=== PATIENT | male | born 1945 | race African-American/Black ===

== ENCOUNTER 2024-11-12 20:23 | Emergency (ER) | payer OTHER ==
[~2024-11-12] VITALS: Ht 188 cm; Wt 87.0 kg
[2024-11-12 20:27] VITALS: TEMP 98.2; O2SAT 96
[2024-11-12] MEDS: SODIUM CHLORIDE 0.9% 1,000 ML IV ONE (21:24)
[2024-11-12 22:27] LABS: DIFFERENTIAL COMMENT 1; HEMATOCRIT. 44.3 % (42.0-52.0); HEMOGLOBIN. 14.1 g/dL (14.0-18.0); MEAN CORPUSCULAR HEMOGLOBIN 28.2 pg (28.0-32.0); MEAN CORPUSCULAR HGB CONC 31.8 g/dL (31.0-37.0); MEAN CORPUSCULAR VOLUME 88.6 fL (80.0-94.0); MEAN PLATELET VOLUME 10.6 fl (7.4-10.4); PLATELET 152 x1000/uL (130-400); RED CELL DISTRIBUTION WIDTH 14.7 % (11.6-14.6); WHITE BLOOD COUNT 9.9 x1000/uL (4.5-11.0)
[2024-11-12 22:33] LABS: INR 1.2; PARTIAL THROMBOPLASTIN TIME 35.3 sec (23.4-31.0); PROTHROMBIN TIME 12.7 sec (9.6-11.0)
[2024-11-12 22:49] LABS: CHLORIDE 104 mEq/L (98-107); POTASSIUM 4.1 mEq/L (3.5-5.1); SODIUM 138 mEq/L (136-145)
[2024-11-12 22:50] LABS: CARBON DIOXIDE 26 mEq/L (21-32)
[2024-11-12 22:51] LABS: CALCIUM 9.3 mg/dL (8.7-10.4)
[2024-11-12 22:55] LABS: CREATININE 0.8 mg/dL (0.6-1.3); GLUCOSE 116 mg/dL (70-105); UREA NITROGEN BLOOD 17 mg/dL (9-23)
[2024-11-12 22:59] LABS: TROPONIN I HIGH SENSITIVITY 7 ng/L (3.0-53)
[2024-11-12] MEDS: DILTIAZEM HCL 5MG/ML 5ML VIAL IV ONE (23:23)
[2024-11-12 23:32] LABS: ANISOCYTOSIS 1+; PLATELET ESTIMATE NORMAL
[2024-11-13] MEDS: DILTIAZEM HCL 60MG TABLET PO ONE (01:58)
[2024-11-13 02:28] VITALS: BP 123/80; PULSE 106; RESP 16; O2SAT 99
== END 2024-11-13 03:13 | disposition short-term general hospital (02) ==
LOC: ER 20:23
DX: I48.91 Unspecified atrial fibrillation (principal); I10 Essential (primary) hypertension; Z79.01 Long term (current) use of anticoagulants
CPT/HCPCS: 99291; 96374; 96361; 80048; 83880; 85025; 85610; 85730; 84484; 36415; 71045; 93005; J3490; J7030